=== PATIENT | female | born 1995 | race Caucasian/White ===

== ENCOUNTER 2025-09-20 21:44 | Emergency (ER) | payer OTHER ==
[~2025-09-20] VITALS: Ht 162.6 cm; Wt 54.9 kg
[2025-09-20] MEDS ORDERED: dexaMETHasone SOD PHOSPHATE 1 ML ONE (22:28)
[2025-09-20] MEDS ORDERED: FAMOTIDINE (20 MG) 20 MG TABLET ONE (22:32)
[2025-09-20] MEDS: dexaMETHasone SOD PHOSPHATE 4 MG/ML VIAL IM ONE (22:41)
[2025-09-20] MEDS: FAMOTIDINE (20 MG) 20 MG TABLET PO ONE (22:41)
[2025-09-20 23:37] VITALS: BP 126/70; TEMP 98.6; O2SAT 99
== END 2025-09-20 23:41 | disposition home or self-care (01) ==
LOC: ER 21:48
DX: T78.3XXA Angioneurotic edema, initial encounter (principal); R30.0 Dysuria; Z91.048 Other nonmedicinal substance allergy status; Z60.2 Problems related to living alone
CPT/HCPCS: 99284; 96372; J1100; J1200